=== PATIENT | male | born 1965 | race Caucasian/White ===

== ENCOUNTER → 2018-09-14 09:11 | Outpatient (CLI) | payer OTHER, SELFPAY ==
--- NOTE | 2018-09-14 | DI.RAD.S_ITS ---
PROCEDURE: XR ANKLE LT MIN 3V INDICATIONS: left ankle pain TECHNIQUE: 3 views of the ankle were acquired. COMPARISON: [facility], , ANKLE 3 VIEWS RIGHT, 05/23/2011, 16:24. FINDINGS: Bones: No fractures or dislocations. Ankle mortise is normally aligned. No suspicious bony lesions. Mid calcaneal bone island. Soft tissues: No tibiotalar joint effusion. Achilles tendon appears normal. Lateral malleolar soft tissue swelling. IMPRESSION: Lateral malleolar soft tissue swelling and no displaced fracture seen. If there is continued pain, followup exam or additional imaging such as MRI or CT could be performed for further assessment. Dictated by: Issa MATA Interpreted: Nicolas Frye MD on 09/14/2018 at 15:51 Approved by: Nicolas Frye M.D. on 09/15/2018 at 9:39
== END ==
PROVIDERS: Family Provider Family Medicine; PCP Family Medicine; Visit Provider Family Medicine
DX: M25.572 Pain in left ankle and joints of left foot (principal); M25.472 Effusion, left ankle
CPT/HCPCS: 73610

== ENCOUNTER → 2018-09-24 15:10 | Outpatient (CLI) | payer OTHER, SELFPAY ==
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
== END ==
PROVIDERS: Family Provider Family Medicine; PCP Family Medicine; Visit Provider Family Medicine
DX: M79.662 Pain in left lower leg (principal); M79.89 Other specified soft tissue disorders
CPT/HCPCS: 73610

== ENCOUNTER → 2019-04-19 17:49 | Outpatient (CLI) | payer OTHER, SELFPAY ==
--- NOTE | 2019-04-19 17:54 | DI.RAD.S_ITS ---
PROCEDURE: XR ANKLE RT MIN 3V INDICATIONS: ELEVATED PAIN PREVIOUS INJURY TECHNIQUE: 3 views of the ankle were acquired. COMPARISON: [facility], CR, XR ANKLE LT MIN 3V, 09/24/2018, 15:19. FINDINGS: Bones: No fractures or dislocations. Ankle mortise is normally aligned. No suspicious bony lesions. Unfused os trigonum. Mild degenerative spurring at the lateral and medial malleolus. Questionable subcortical cystic changes along the medial and lateral edge of the talar dome. Soft tissues: No tibiotalar joint effusion. Achilles tendon appears normal. IMPRESSION: Probable degenerative changes including questional subcortical cystic changes of the talar dome. Consider MR of the right ankle for continued symptoms. Dictated by: Amanda Schaefer M.D. on 04/19/2019 at 18:29 Approved by: Amanda Schaefer M.D. on 04/19/2019 at 18:31
== END ==
PROVIDERS: Family Provider Family Medicine; PCP Family Medicine; Visit Provider Family Medicine
DX: M25.571 Pain in right ankle and joints of right foot (principal)
CPT/HCPCS: 73610

== ENCOUNTER → 2019-05-28 14:07 | Outpatient (CLI) | payer OTHER, SELFPAY ==
--- NOTE | 2019-05-28 | DI.MRI.S_ITS ---
PROCEDURE: MR ANKLE RT WO CON INDICATIONS: RIGHT ANKLE PAIN TECHNIQUE: Noncontrast sagittal T1 spin echo and T2 fast spin echo with fat saturation, axial proton density fast spin echo and T2 fast spin echo with fat saturation, coronal T1 spin echo and T2 fast spin echo with fat saturation through the ankle/hindfoot. COMPARISON: [facility], CR, XR ANKLE RT MIN 3V, 04/19/2019, 17:55. FINDINGS: Image quality: Diagnostic. Bones and joints: No acute fracture or dislocation is identified involving the osseous structures of the midfoot or hindfoot. Moderate degenerative cystic changes are evident along the medial and lateral corners of the talar dome without a displaced osteochondral fragment evident. Defect of the overlying hyaline articular cartilage are suspected. There also are degenerative cystic changes present involving the articular surface of the lateral malleolus. Mild degenerative changes are noted involving the posterior subtalar joint. An os trigonum is present, demonstrating slight increased signal. Otherwise, the remainder of the midfoot and hindfoot joints are unremarkable. No significant joint effusions are present. Medial structures: The deltoid ligament is intact, but demonstrates slight increase signal. Thickening of the superomedial band of the spring ligament is present. The plantar components of the spring ligament are intact. The tibialis posterior, flexor digitorum longus, and flexor hallucis longus tendons appear to be within normal limits. There is slight prominence of the posterior tibial nerve through the region of interest normal. Lateral structures: The anterior and posterior distal tibiofibular ligaments are intact and otherwise unremarkable. There likely is a chronic full-thickness tear of the anterior talofibular ligament. The posterior talofibular ligament is intact, but heterogeneous. Thickening of the calcaneofibular ligament is present without a full-thickness tear evident. There is prominent flattening of the peroneus brevis tendon with a short segment longitudinal split tear extending from just above the level of the tip of the lateral malleolus to just slightly beyond the tip of the lateral malleolus. The peroneus longus tendon demonstrates minimal increased signal. There is slight increased signal identified within soft tissue surrounding these tendons. Trace amount of fluid may be contained within their corresponding tendon sheaths. Anterior structures: The tibialis anterior, extensor hallucis longus, and extensor digitorum longus tendons appear intact. The dorsal talonavicular ligament appears intact. Posterior and plantar structures: Achilles tendon is intact. Medial and lateral bands of the plantar fascia are of normal thickness. IMPRESSION: 1. 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 Degenerative cystic changes are present without an osteochondral fragment evident. 2. Short segment longitudinal split tear of the peroneus brevis tendon with corresponding mild tendinopathy. There is also mild peroneus longus tendinopathy. 3. Chronic appearing full-thickness anterior talofibular ligament tear. Scarring of the other lateral ankle ligaments likely is present. 4. Mild degenerative changes of the posterior subtalar joint. Os trigonum edema probably is degenerative. Clinical correlation to exclude os trigonum syndrome is recommended. 5. Probable scar of the spring ligament. A superimposed acute sprain is difficult to exclude. Dictated by: Wes Goldberg M.D. on 05/28/2019 at 16:56 Approved by: Wes Goldberg M.D. on 05/28/2019 at 17:03
== END ==
PROVIDERS: PCP Family Medicine; Visit Provider Family Medicine
DX: M25.571 Pain in right ankle and joints of right foot (principal); S93.491A Sprain of other ligament of right ankle, initial encounter
CPT/HCPCS: 73721

== ENCOUNTER → 2019-08-01 15:57 | Outpatient (CLI) | payer OTHER, SELFPAY ==
[2019-08-01 18:10] LABS: BUN Creatinine Ratio 23.8 (6-22); Blood Urea Nitrogen 19 mg/dL (9-20); Calcium 10.6 mg/dL (8.4-10.2); Carbon Dioxide 30 mmol/L (22-32); Chloride 100 mmol/L (98-107); Estimated Glomerular Filt Rate > 60.0 mL/min (>60); Glucose 82 mg/dL (70-100); HEMOLYSIS < 15 (0-50); Potassium 4.4 mmol/L (3.4-5.1); Sodium 140 mmol/L (137-145)
== END ==
PROVIDERS: Orthopaedic Surgery Foot and Ankle Surgery; PCP Family Medicine; Visit Provider Family Medicine
DX: M95.8 Other specified acquired deformities of musculoskeletal system (principal); S86.311A Strain of muscle(s) and tendon(s) of peroneal muscle group at lower leg level, right leg, initial encounter
CPT/HCPCS: 36415; 80048

== ENCOUNTER → 2020-03-17 07:05 | Outpatient (CLI) | payer OTHER, SELFPAY ==
[2020-03-17 07:32] LABS: Add Manual Diff / Slide Review NO; Basophils Absolute Auto 0 /uL (0-100); Basophils Percent Auto 0.3 % (0-2); Eosinophils Absolute Auto 200 /uL (0-450); Eosinophils Percent Auto 2.3 % (2-4); Hematocrit 47.7 % (41-53); Hemoglobin 16.3 g/dL (13.5-17.5); Lymphocytes Absolute Auto 1800 /uL (1100-4500); Lymphocytes Percent Auto 27.1 % (25-40); Mean Corpuscular HGB Conc 34.2 % (30-36); Mean Corpuscular Hemoglobin 29.5 PG (26-34); Mean Corpuscular Volume 86.3 fL (80-100); Monocytes Absolute Auto 500 /uL (0-900); Monocytes Percent Auto 8.2 % (3-14); Neutrophils Absolute Auto 4100 /uL (1500-7000); Neutrophils Percent Auto 62.1 % (50-75); Platelet Count 167 X10^3/uL (150-400); Red Blood Cell Count 5.53 X10^6/uL (4.5-5.9); Red Cell Distribution Width 14.2 % (11.6-14.8); White Blood Cell Count 6.6 X10^3/uL (4.5-11.0)
[2020-03-17 07:33] LABS: Alanine Aminotransferase 37 IU/L (<50); Albumin 4.5 g/dL (3.5-5.0); Albumin Globulin Ratio 1.7 (1.0-2.8); Alkaline Phosphatase 68 U/L (38-126); Aspartate Aminotransferase 26 IU/L (17-59); BUN Creatinine Ratio 19.5 (6-22); Bilirubin Total 1.1 mg/dL (0.2-1.3); Blood Urea Nitrogen 15 mg/dL (9-20); Calcium 9.6 mg/dL (8.4-10.2); Carbon Dioxide 30 mmol/L (22-32); Chloride 103 mmol/L (98-107); Estimated Glomerular Filt Rate > 60.0 mL/min (>60); Globulin 2.7 g/dL (1.7-4.1); Glucose 114 mg/dL (70-100); HEMOLYSIS < 15 (0-50); Potassium 4.8 mmol/L (3.4-5.1); Sodium 140 mmol/L (137-145); Total Protein 7.2 g/dL (6.3-8.2)
== END ==
PROVIDERS: PCP Family Medicine; Referring Provider Family Medicine; Visit Provider Family Medicine
DX: R10.31 Right lower quadrant pain (principal); R31.9 Hematuria, unspecified
CPT/HCPCS: 36415; 80053; 85025

== ENCOUNTER → 2020-03-17 07:22 | Outpatient (CLI) | payer OTHER, SELFPAY ==
--- NOTE | 2020-03-17 08:35 | DI.CT.S_ITS ---
PROCEDURE: CT ABDOMEN PELVIS W CON INDICATIONS: Right lower quadrant pain TECHNIQUE: After the administration of oral and intravenous contrast, 5 mm thick sections acquired from the diaphragms to the symphysis. 5 mm thick coronal and sagittal reformats were performed. For radiation dose reduction, the following was used: automated exposure control, adjustment of mA and/or kV according to patient size. COMPARISON: [facility], RG, CT KUB, 10/10/2006, 11:14. [facility], CT, ABDOMEN/PELVIS WITHOUT CONTRAS, 01/30/2015, 16:47. FINDINGS: Image quality: Excellent. ABDOMEN: Lung bases: Lung bases are clear. Heart size is normal. Solid organs: Liver is normal in size, and enhancement except a small focus at the superior posterior right hepatic segment seen on series 2 image 17, measuring only 9 mm in maximal dimension with peripheral slight hyperperfusion of the overlying liver parenchyma. In this same area on CT abdomen/pelvis performed without contrast 01/30/15 a subtle hypodensity can be seen corresponding to that structure, most likely a manifestation of stable small unilocular hemangioma. Gallbladder appears normal. Biliary system is non-dilated. Pancreas enhances normally. Spleen is normal in size and enhancement. No adrenal nodules. Kidneys are normal in size and enhancement, without hydronephrosis. Peritoneum and bowel: Stomach, small bowel, and colon loops are normal in caliber and wall thickness. No free fluid or air. Nodes and vessels: No retroperitoneal or mesenteric adenopathy. Aorta and inferior vena cava are normal in caliber. Miscellaneous: No ventral hernias. PELVIS: Genitourinary: Bladder wall thickness is normal. Miscellaneous: No inguinal hernias or adenopathy. A normal appendix is found at the right lower quadrant. No diverticulitis is present, no urinary tract stone is found. Bones: No suspicious bony lesions. No vertebral body compression fractures. IMPRESSION: Source of right lower quadrant pain is not identified. Normal appendix seen, no diverticulitis or urinary tract stones or inflammation identified. Incidental note is made of a small perfusion anomaly at the superior right posterior hepatic segment in an area corresponding to a subtle hypodensity seen in the same site in January of [address] scanning. The appearance is nonspecific but statistically most likely a manifestation of a small unilocular hemangioma. If clinically desired that area could be insonated for sonographic characterization but by positioning near the undersurface of the diaphragm to may not be identifiable. Dictated by: Shayne Mario M.D. on 03/17/2020 at 9:12 Approved by: Shayne Mario M.D. on 03/17/2020 at 9:21
== END ==
PROVIDERS: PCP Family Medicine; Referring Provider Family Medicine; Visit Provider Family Medicine
DX: R10.31 Right lower quadrant pain (principal); R31.9 Hematuria, unspecified
CPT/HCPCS: 36415; 74177; 80053; 85025; Q9967

== ENCOUNTER 2021-05-09 20:52 | Emergency (ER) | payer OTHER, SELFPAY ==
[2021-05-09 21:07] VITALS: BP 146/81; PULSE 65; RESP 18; TEMP 36.5; O2SAT 96; BMI 31.8
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
[2021-05-09] MEDS: BACITRACIN OINT 0.9 GM PCKT 3 APPLIC TOP (21:31)
[2021-05-09] MEDS: OXYCODONE/ACETAMINOPHEN 5/325 TABLET 1 TAB PO (23:16)
[2021-05-10] MEDS: OXYCODONE/APAP 5/325 PREPACK 1 BOTTLE MISC (01:42)
== END 2021-05-10 01:45 | disposition home or self-care (01) ==
PROVIDERS: Emergency Provider Emergency Medicine; PCP Family Medicine
DX: T23.202A Burn of second degree of left hand, unspecified site, initial encounter (principal); W39.XXXA Discharge of firework, initial encounter
CPT/HCPCS: 99283; 99284

== ENCOUNTER → 2021-07-29 15:10 | Outpatient (CLI) | payer OTHER, SELFPAY ==
--- NOTE | 2021-07-29 15:13 | DI.RAD.S_ITS ---
PROCEDURE: XR WRIST RT MIN 3V INDICATIONS: RT WRIST PAIN TECHNIQUE: 3 views of the wrist were acquired. COMPARISON: None. FINDINGS: Bones: No fractures or dislocations. No suspicious bony lesions. Moderate radiocarpal joint space narrowing with periarticular osteophyte formation. Healed fracture deformity involving the distal radial metaphysis. Healed fracture deformity of the 3rd metacarpus with fixation plate and screws present. Large bone cyst involving the distal ulna. Scaphoid view: Not requested. Soft tissues: No suspicious soft tissue calcifications. IMPRESSION: 1. Moderate radiocarpal joint degeneration. 2. Large bone cyst involving the distal ulna. 3. Healed fracture deformity of the distal radius as well as the 3rd metacarpal bone where fixation hardware is present and in expected positions. Dictated by: Issa MATA Interpreted: Hiram Aguirre MD on 07/29/2021 at 15:32 Transcribed by: DUNIA on 07/29/2021 at 15:34 Approved by: Hiram Aguirre M.D. on 07/29/2021 at 17:28
== END ==
PROVIDERS: PCP Family Medicine; Referring Provider Family Medicine; Visit Provider Family Medicine
DX: M25.531 Pain in right wrist (principal); M85.641 Other cyst of bone, right hand
CPT/HCPCS: 73110

== ENCOUNTER → 2021-08-12 13:03 | Outpatient (ROUT) | payer OTHER, SELFPAY ==
[2021-08-12 15:14] LABS: COVID19 -Nasal RAPID Negative (Negative)
== END ==
PROVIDERS: PCP Family Medicine; Visit Provider Family Medicine
DX: Z20.822 Contact with and (suspected) exposure to COVID-19 (principal)
CPT/HCPCS: 87635

== ENCOUNTER → 2021-08-30 11:45 | Outpatient (ROUT) | payer OTHER, SELFPAY ==
[2021-08-30 12:58] LABS: COVID19 -Nasal RAPID POSITIVE (Negative)
== END ==
PROVIDERS: PCP Family Medicine; Visit Provider Family Medicine
DX: U07.1 COVID-19 (principal)
CPT/HCPCS: 87635

== ENCOUNTER → 2022-01-17 10:22 | Outpatient (CLI) | payer OTHER, SELFPAY ==
--- NOTE | 2022-01-17 | DI.RAD.S_ITS ---
PROCEDURE: XR CERVICAL SPINE 4V OR 5V INDICATIONS: NECK PAIN TECHNIQUE: 5 views of the cervical spine were acquired. COMPARISON: [facility], , CERVICAL SPINE 4 OR 5 VIEWS, 07/07/2016, 16:40. FINDINGS: Bones: No fractures or dislocations to the T1 level. No suspicious bony lesions. Prior ACDF C5-C6 and C6-C7 with hardware and bone grafts in expected unchanged positions. Periprosthetic lucency again seen involving the surgical fixation screws unchanged from prior examination. Moderate disc height loss at the C3-C4 and C4-C5 levels. Moderate multilevel mid and lower cervical spine facet joint arthropathy and uncovertebral hypertrophy There is normal range of motion between flexion and extension, with mild dynamic instability at the C3-C4 and C4-C5 levels where there is grade 1 retrolisthesis on the extension view. Soft tissues: Prevertebral soft tissues are normal in thickness. IMPRESSION: 1. Stable postsurgical sequelae and bony alignment. Of note, periprosthetic lucencies again seen involving the surgical fixation screws unchanged from prior examination. 2. Multilevel spondylosis similar to prior examination. 3. Mild dynamic instability noted on the flexion extension views at the C3-C4 and C4-C5 levels. Dictated by: Issa Michel [facility] Interpreted: Graeme Ballesteros MD on 01/17/2022 at 10:55 Approved by: Graeme Ballesteros M.D. on 01/17/2022 at 16:49
== END ==
PROVIDERS: PCP Family Medicine; Referring Provider Family Medicine; Visit Provider Family Medicine
DX: M47.812 Spondylosis without myelopathy or radiculopathy, cervical region (principal); M54.2 Cervicalgia; Z98.1 Arthrodesis status
CPT/HCPCS: 72050

== ENCOUNTER 2023-04-08 22:15 | Emergency (ER) | payer OTHER, SELFPAY ==
[2023-04-08 22:26] VITALS: BP 131/98; PULSE 89; RESP 16; TEMP 36.7; O2SAT 96; BMI 32.3
--- NOTE | 2023-04-08 22:32 | DI.RAD.S_ITS ---
PROCEDURE: XR ANKLE LT MIN 3V INDICATIONS: Ankle pain TECHNIQUE: 3 views of the ankle were acquired. COMPARISON: [facility], CR, XR ANKLE RT MIN 3V, 04/19/2019, 17:55[facility], CR, XR ANKLE LT MIN 3V, 09/24/2018, 15:19. FINDINGS: Bones: No dislocations. Ankle mortise is normally aligned. No suspicious bony lesions. There is a diagonal nondisplaced fracture involving the distal diaphysis of the left fibula, with no additional trauma found. Soft tissues: No tibiotalar joint effusion. Achilles tendon appears normal. IMPRESSION: Acute appearing diagonal nondisplaced distal fibular fracture involving the diaphysis. Dictated by: Shayne Mario M.D. on 04/08/2023 at 22:45 Approved by: Shayne Mario M.D. on 04/08/2023 at 22:46
--- NOTE | 2023-04-08 22:32 | ED_ITS ---
HPI - Extremity Injury (Lower) General Chief Complaint: Extremity Injury, Lower Stated Complaint: Did something to leg Time Seen by Provider: 04/08/23 22:32 Source: patient Mode of arrival: Wheelchair History of Present Illness HPI Narrative: 57-year-old male daily smoker with noncontributory chronic medical history presents with his in the chief complaint of pain in his left lower extremity laterally just above the ankle. He was playing horseshoes and stepped awkwardly and he felt a pop. It is reported that other bystanders also heard the pop. He now has pain with ambulation and reports an inability to weightbear secondary to this pain. He denies any knee or hip pain. He is otherwise well and free of complaint Related Data Previous Rx's Medication Instructions Recorded hydrocodone 5 mg-acetaminophen 325 12 tab PO Q6H PRN #10 tabs 10/31/17 mg tablet ([place]) oxycodone-acetaminophen 5 mg-325 1 tab PO Q8H PRN pain #20 tabs 07/05/21 mg tablet (Percocet) Allergies Allergy/AdvReac Type Severity Reaction Status Date / Time NSAIDS (Non-Steroidal Allergy Severe ANAPHYLACTI Verified 04/08/23 22:26 Anti-Inflamma CS [NSAIDS (NON-STEROIDAL ANTI-INFLAMMA] Review of Systems Review of Systems Narrative: GENERAL: Denies chills, fatigue, malaise, fever, sweats. HEENT: Denies sinus pain, ear pain, sore throat, difficulty swallowing, dizziness. RESPIRATORY: Denies dyspnea, cough, wheezing, hemoptysis, sputum. CARDIOVASCULAR: Denies chest pain, palpitations, orthopnea, edema, GASTROINTESTINAL: Denies nausea, vomiting, abdominal pain, diarrhea, constipation, melena. : Denies dysuria, frequency, incontinence, hematuria, urinary retention. MUSCULOSKELETAL: See HPI SKIN: Denies rash, skin lesions, or other NEUROLOGIC: Denies weakness, headache, numbness, change in speech, confusion, seizures, incoordination. PSYCHIATRIC: No concerning psychosocial issues. 12 point review of systems is negative except for those stated above Patient History Social History Smoking Status: Current every day smoker Smoking Status: Current every day smoker alcohol intake frequency: 0-2 drinks per day Alcohol type: beer Substance Use Type: does not use Exam Narrative Exam Narrative: GENERAL: [57] year old patient appears stated age. Well-developed patient, in mild distress. HEAD: Atraumatic. Normocephalic. EYES: Pupils equal round and reactive. Extraocular motions intact. No scleral icterus. No injection or drainage. ENT: Nose without bleeding, purulent drainage. Throat without erythema, tonsillar hypertrophy or exudate. Airway patent. NECK: Trachea midline. Non tender CARDIOVASCULAR: Regular rate and rhythm without murmurs, gallops, or rubs. RESPIRATORY: Clear to auscultation. Breath sounds equal bilaterally. No wheezes, rales, or rhonchi. GASTROINTESTINAL: Abdomen soft, non-tender, nondistended. EXTREMITIES: No pain in left hip, knee, ankle or foot. There is pain and swelling a few cm proximal to lateral malleolus. No pain in distribution of Achilles tendon, patient laid on abdomen and calf squeeze results in plantar flexion. BACK: Nontender without deformity or crepitance. No flank tenderness. NEURO: AOx3. SKIN: No rash or erythema of visible areas Initial Vital Signs Initial Vital Signs: Vital Signs Temperature 98.0 F 04/08/23 22:26 Pulse Rate 89 04/08/23 22:26 Respiratory Rate 16 04/08/23 22:26 Blood Pressure 131/98 H 04/08/23 22:26 Pulse Oximetry 96 04/08/23 22:26 Oxygen Delivery Method Room Air 04/08/23 22:26 Procedures Orthopedic Splinting/Casting Injury #1: Side: left Lower Extremity Injury Location: lower leg Lower Extremity Immobilizer: boot orthosis Other Orthopedic Equipment: crutches Post splinting neuro exam: intact Post splinting vascular exam: intact Course Orders Ordered: Discontinued Medications Acetaminophen (Acetaminophen 325 Mg Tablet) 975 mg PO NOW ONE Stop: 04/09/23 00:29 Last Admin: 04/09/23 00:42 Dose: Not Given Documented By: SB Vital Signs Vital signs: Vital Signs - 8 hr 04/08/23 22:26 Temperature 98.0 F Pulse Rate 89 Respiratory Rate 16 Blood Pressure 131/98 H Pulse Oximetry 96 Oxygen Delivery Method Room Air MDM - Extremity Injury (Lower) MDM Narrative Medical decision making narrative: [57] year old patient presents with left lower extremity pain Multiple etiologies for patient's symptoms considered including, but not limited to: [Fracture versus dislocation] Prior Charts reviewed in our EMR Primary Historian: patient Imaging reviewed: Oblique fibular fracture Patient's symptoms improved over duration of stay with above-stated therapies. Findings and discharge diagnosis discussed with patient/family followed by verbalization of understanding Return precautions discussed with patient/family whom verbalize understanding of diagnosis and plan Discharge Plan Departure Patient Disposition: Home Clinical Impression: Closed left fibular fracture Instructions: Fibula Shaft Fracture Activity Restrictions/Additional Instructions: *You have been diagnosed with [left fibula fracture] *What to do: *Please continue to take your regular medications as directed. [ ] New medication prescriptions sent to your pharmacy: [ ] [ ] New medication written as a paper prescription [x] Tylenol and occasional Motrin for pain *Please follow up with [ Toney] of [facility] in 2-3 days, call for an appointment. Let them know you were seen in the Emergency Department and that we ask that you be seen in follow up. We will electronically transmit a record of today's note if your PCP is in our system Non-weight bearing until cleared by ortho *Return to Emergency Department if you should have any new, worsening or concerning symptoms, such as [worsening pain, significant swelling, cold extremities, numbness, tingling, weakness or other bothersome symptoms Splint Care: Keep splint clean and dry. Elevated affected body part to decrease swelling. OK to use ice pack on the affected body part. Use for 15-20 minutes each time, for 5-6x per day. If you develop worsening pain, numbness, tingling, discoloration of the affected body part, loosen the splint by loosening the RAYSHAWN wrap, and either see your doctor for an urgent re-assessment, or return to the Emergency Department. Return to the Emergency Department for any new or worsening symptoms. Prescriptions: No Action hydrocodone-acetaminophen [[place]] 5 MG/325 MG tablet 12 tab PO Q6H PRNQty: 10 0RF oxycodone-acetaminophen [Percocet] 5-325 mg tablet 1 tab PO Q8H PRN (Reason: pain) Qty: 20 0RF Referrals: Kayla Ceballos MD [Primary Care Provider] - Stephy Ziegler MD [Physician] - Stand Alone Forms: Patient Portal/API, Work Release Note
== END 2023-04-09 00:44 | disposition home or self-care (01) ==
PROVIDERS: Emergency Provider Emergency Medicine; PCP Family Medicine
DX: S82.402A Unspecified fracture of shaft of left fibula, initial encounter for closed fracture (principal); X50.1XXA Overexertion from prolonged static or awkward postures, initial encounter
CPT/HCPCS: 73610; 99282; 99283

== ENCOUNTER → 2024-03-15 14:35 | Outpatient (CLI) | payer OTHER, SELFPAY ==
--- NOTE | 2024-03-15 14:39 | DI.CT.S_ITS ---
PROCEDURE: CT LE RT WO CON INDICATIONS: Post-traumatic osteoarthritis, right ankle and foot TECHNIQUE: Noncontrast 1-mm axial sections acquired from the distal femoral shaft to the bottom of foot, with coronal and sagittal reformats.. COMPARISON: [facility], CR, XR ANKLE 3 VIEWS WEIGHT BEARING LEFT, 04/19/2023, 8:24. [facility], CR, XR ANKLE 3 VIEWS WEIGHT BEARING LEFT, 05/17/2023, 8:18. [facility], CR, XR ANKLE 3 VIEWS WEIGHT BEARING RIGHT, 01/02/2024, 15:26. FINDINGS: Image quality: Excellent. Bones: Alignment of left lower extremity is anatomic. No acute fracture or dislocation. Mild tricompartmental osteoarthritis in right knee is seen with joint space narrowing and subchondral sclerosis. Moderate to severe tibiotalar joint osteoarthritic changes are noted with significant joint space narrowing, extensive subchondral sclerosis and subcortical cystic changes. There is flattening of talar dome with large osteochondral injury involving medial aspect of talar dome and a unstable loose fragment measures 1 x 0.7 x 0.7 cm in size. Arlm-ti-apqmauvt osteoarthritic changes are noted in talonavicular joint and subtalar joint. No suspicious bony lesions. Soft tissues: There is small to moderate amount of tibiotalar joint effusion. No gross calcified intra-articular loose bodies. No discrete soft tissue mass or drainable fluid collection. No gross full-thickness tendon rupture. IMPRESSION: 1. Moderate to severe tibiotalar joint osteoarthritis with suggestion of large osteochondral injury involving medial weight-bearing portion of talar dome and a 1 x 0.7 x 0.7 cm likely unstable fragment. 2. Iwvw-in-qmjitfbp osteoarthritic changes throughout rest of the right lower extremity. No acute fracture or dislocation. No suspicious bony lesions. 3. Small to moderate tibiotalar joint effusion, no calcified intra-articular loose bodies. No discrete soft tissue mass or drainable fluid collection. No full-thickness tendon rupture. Dictated by: Maulik Lane M.D. on 03/15/2024 at 16:43 Approved by: Maulik Lane M.D. on 03/15/2024 at 16:53
== END ==
LOC: CT 14:38
PROVIDERS: PCP Family Medicine; Referring Provider Orthopaedic Surgery Foot and Ankle Surgery; Visit Provider Orthopaedic Surgery Foot and Ankle Surgery
DX: M19.171 Post-traumatic osteoarthritis, right ankle and foot (principal); M25.471 Effusion, right ankle
CPT/HCPCS: 73700

== ENCOUNTER → 2024-04-15 12:36 | Outpatient (ROUT) | payer OTHER, SELFPAY ==
[2024-04-15 12:54] LABS: Add Manual Diff / Slide Review NO; Basophils Absolute Auto 0 /uL (0-100); Basophils Percent Auto 0.3 % (0-2); Eosinophils Absolute Auto 200 /uL (0-450); Eosinophils Percent Auto 1.7 % (2-4); Hematocrit 46.9 % (41-53); Lymphocytes Absolute Auto 2200 /uL (1100-4500); Lymphocytes Percent Auto 24.5 % (25-40); Mean Corpuscular HGB Conc 34.2 % (30-36); Mean Corpuscular Hemoglobin 29.8 PG (26-34); Mean Corpuscular Volume 87.1 fL (80-100); Monocytes Absolute Auto 800 /uL (0-900); Monocytes Percent Auto 8.5 % (3-14); Neutrophils Absolute Auto 5900 /uL (1500-7000); Platelet Count 188 X10^3/uL (150-400); Red Blood Cell Count 5.38 X10^6/uL (4.5-5.9); Red Cell Distribution Width 14.6 % (11.6-14.8)
[2024-04-15 13:48] LABS: Alanine Aminotransferase 42 IU/L (<50); Albumin 4.6 g/dL (3.5-5.0); Albumin Globulin Ratio 2.2 (1.0-2.8); Alkaline Phosphatase 80 U/L (38-126); Aspartate Aminotransferase 32 IU/L (17-59); BUN Creatinine Ratio 17.3 (6-22); Bilirubin Total 0.7 mg/dL (0.2-1.3); Blood Urea Nitrogen 13 mg/dL (9-20); Calcium 9.2 mg/dL (8.4-10.2); Carbon Dioxide 29 mmol/L (22-32); Chloride 104 mmol/L (98-107); Cholesterol 209 mg/dL (140-199); Estimated Glomerular Filt Rate > 60 mL/min (>60); Globulin 2.1 g/dL (1.7-4.1); Glucose 66 mg/dL (70-100); HDL Cholesterol 50 mg/dL (40-60); HEMOLYSIS 21 (0-50); Hemoglobin A1C% w Est Avg Glu 5.6 % (4.0-6.0); Potassium 3.6 mmol/L (3.4-5.1); Sodium 141 mmol/L (137-145); Total Protein 6.7 g/dL (6.3-8.2)
== END ==
PROVIDERS: PCP Family Medicine; Visit Provider Family Medicine
DX: Z01.818 Encounter for other preprocedural examination (principal); Z01.812 Encounter for preprocedural laboratory examination; R73.9 Hyperglycemia, unspecified
CPT/HCPCS: 36415; 80053; 82306; 82465; 83036; 83718; 85025

== ENCOUNTER → 2024-05-15 06:25 | Day surgery (SDC) | payer OTHER, SELFPAY ==
[2024-05-06 08:37] VITALS: BMI 33.6
[2024-05-15] MEDS: ACETAMINOPHEN 325 MG TABLET 975 MG PO (07:04)
[2024-05-15] MEDS: LACTATED RINGERS 1,000 ML 42 ML IV (07:09)
[2024-05-15 07:14] VITALS: BP 160/97; PULSE 56; RESP 18; TEMP 36.7; O2SAT 96; BMI 36.3
--- NOTE | 2024-05-15 07:34 | PM.PREOP ---
Pre-operative Note Interval Note History & Physical reviewed/Exam performed by Physician: Yes Changes to H&P: No
[2024-05-15 07:43] LABS: COVID19 -Nasal RAPID POSITIVE (Negative)
--- NOTE | 2024-05-15 07:55 | SUR.PREOP ---
CASE CANCELLED DUE TO PT TESTING POSITIVE FOR COVID
== END | disposition home or self-care (01) ==
LOC: OR 06:28 → AC 07:50 → OR 11:48
PROVIDERS: PCP Family Medicine; Referring Provider Orthopaedic Surgery Foot and Ankle Surgery; Visit Provider Orthopaedic Surgery Foot and Ankle Surgery
DX: M19.071 Primary osteoarthritis, right ankle and foot (principal); Z53.8 Procedure and treatment not carried out for other reasons; U07.1 COVID-19
CPT/HCPCS: 87635

== ENCOUNTER 2024-06-26 06:45 | Day surgery (SDC) | payer OTHER, SELFPAY ==
[2024-06-25 12:51] VITALS: BMI 33.9
[2024-06-26] VITALS (11 sets, daily range): BP systolic 102–172; BP diastolic 63–91; PULSE 61–88; RESP 12–17; TEMP 36.3–36.6; O2SAT 92–95; BMI 36.4
--- NOTE | 2024-06-26 | DI.RAD.S_ITS ---
PROCEDURE: XR ANKLE RT 2V INDICATIONS: TOTAL ANKLE ARTHRO TECHNIQUE: Intraoperative fluoroscopic spot films COMPARISON: [facility], CR, XR ANKLE LT MIN 3V, 04/08/2023, 22:29. FINDINGS: Ankle joint prosthetic placement and associated surgical instrumentation in for preop position. IMPRESSION: Fluoroscopic guidance Approved by: Jimmy Richardson M.D. on 06/26/2024 at 15:10
[2024-06-26] MEDS: LACTATED RINGERS 1,000 ML 42 ML IV ×2 (07:55→10:59)
[2024-06-26] MEDS: ACETAMINOPHEN 325 MG TABLET 975 MG PO (07:55)
--- NOTE | 2024-06-26 08:28 | P.HP_ITS ---
History of Present Illness History of Present Illness Date Patient Seen: 06/26/24 Time Patient Seen: 08:28 Chief complaint: Right total ankle *OPB* Narrative: Naif is a 59-year-old male with right ankle pain and a history of right ankle arthritis. He had a right ankle arthroscopic aided Mindy OCL fixation and subchondroplasty and peroneal tendon repair in 2019 that helped him for several years. His injury is a result of a industrial injury on 02/03/2011 was claim number is [id number]. He currently works as a compo conveyor operator. He does not have diabetes. He stopped smoking for surgery. He does not take any blood thinners. He is allergic to blue dye. He has no personal or family history of blood clots or thromboembolism no history of stomach ulcers. He was previously scheduled for a total ankle replacement but found to have COVID on the date of surgery it is now been over 6 weeks since that and he is recovered. He had an asymptomatic case. He has been once again medically optimized for surgery and presents for his total ankle arthroplasty today. Review of systems is negative for any fatigue fever sweats chest pain. [facility] Medical History History of COVID-19 (05/15/24) Allergic rhinitis HTN (hypertension) Diverticulosis DJD (degenerative joint disease) Hx of fracture of rib (2012) Surgical History Hx of hand surgery History of ankle surgery (2018) S/P cervical spinal fusion (2009) Social History household members: significant other Smoking Status: Former smoker alcohol intake: current Meds Home Medications and Allergies Home Medications Medication Instructions Recorded Confirmed Type oxycodone-acetaminophen 5 mg-325 1 tab PO Q8H PRN pain #20 tabs 05/10/21 06/26/24 Rx mg tablet (Percocet) hydrochlorothiazide 25 mg tablet 25 mg PO DAILY 05/06/24 06/26/24 History losartan 100 mg tablet 100 mg PO DAILY 05/06/24 06/26/24 History metoprolol succinate 150 mg PO DAILY 05/15/24 06/26/24 History hydrocodone 5 mg-acetaminophen 325 12 tab PO Q6H PRN Pain (Scale 06/26/24 06/26/24 History mg tablet Score 4-6) Allergies Allergy/AdvReac Type Severity Reaction Status Date / Time blue dye Allergy Severe Anaphylaxis Verified 05/15/24 07:43 felodipine Allergy Hives Verified 06/25/24 12:53 lisinopril Allergy Angioedema, Verified 06/25/24 12:53 hives Blue gatorade Allergy Facial Uncoded 05/06/24 11:52 swelling Review of Systems Review of Systems ROS: Yes All systems reviewed with the patient and are negative except as otherwise documented Exam Vital Signs (past 8 hours): - 06/26/24 07:45 Temperature 97.4 F L Pulse Rate 61 Respiratory Rate 17 Blood Pressure 172/91 H Pulse Oximetry 95 Oxygen Delivery Method Room Air Oxygen Delivery Method Room Air Narrative Exam Narrative: Vital signs within normal limits with the exception of some elevated blood pressure this morning. He did appropriately hold his losartan preop. Heart regular rate and rhythm. Lungs clear to auscultation bilaterally. Right lower extremity demonstrates grossly normal alignment range of motion is 5-30 degrees and 10+-30 with knee flexion. He has good strength stability and no swelling atrophy or effusion no wounds. He has a palpable dorsalis pedis pulse. He does have a positive Silfverskiold. Objective Imaging CT scan right ankle March 15, 2024: Radiologist's impression: Independently interpreted the CT scan of the right ankle demonstrates posttraumatic ankle arthritis with a large osteochondral lesion of the talar dome with an unstable fragment. An extensive tibiotalar arthritis. 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 The scan reviewed appropriate bone stock for total ankle arthroplasty. He is failed conservative treatments has been indicated for total ankle arthroplasty. We discussed the total ankle arthroplasty as well as need for additional procedures including gastroc or Achilles lengthening ligamentous balancing or prophylactic fixation for fractures or treatment of intraoperative fractures at the time of surgery. We discussed postoperative plan of nonweightbearing 2-6 weeks depending on adjacent procedures. We discussed the importance of wound healing. He has a prescription for a knee scooter, crutches and a walking boot. The indications are right ankle arthritis and impending ankle replacement surgery. I anticipate a gastroc recession for him. He may need additional ligamentous balancing a prophylactic malleolar fixation as indicated. He had a history of constipation so I recommended starting use the MiraLax several days before surgery. He will go into a splint at the time of surgery and then a boot once his incision has healed appropriately. He has been optimized for surgery keny his labs, EKG and appropriate medical optimization. He has confirmed a candidate for surgery. Definitive surgical decision-making. Postoperative DVT prophylaxis will be enteric-coated aspirin 325 mg daily for 6 weeks this is the same as taking for baby aspirin once a day for 6 weeks. He has postoperative medications including Toradol, Zofran, oxycodone and MiraLax. The risks and benefits and alternatives procedure were discussed with the patient in detail including but not limited to infection, nonunion malunion, loosening, persistent pain wound healing problems, fractures, amputation DVT pulmonary embolism stroke paralysis and symptomatic hardware. He is elected to proceed with the surgery. Consent was signed. Time-Based Coding :: [TOTAL MINUTES] spent with patient and on the chart (including review of chart, obtaining history, exam, reviewing outside data, placing orders, documenting exam and treatment plan, and counseling patient) on [DATE].
--- NOTE | 2024-06-26 08:47 | SUR.PREOP ---
Block start time [0835] . Monitoring initiated and maintained throughout procedure. Oxygen and medications given per anesthesiologist instructions. Patient remained stable throughout procedure, no adverse reactions noted. Block end time [0843].
[2024-06-26] MEDS: CEFAZOLIN 2 GM/100 ML PREMIX 100 ML IV (08:50)
--- NOTE | 2024-06-26 08:54 | SUR.PREOP ---
Block start time [] . Monitoring initiated and maintained throughout procedure. Oxygen and medications given per anesthesiologist instructions. Patient remained stable throughout procedure, no adverse reactions noted. Block end time [].
--- NOTE | 2024-06-26 09:14 | SUR.OPER ---
Supine on padded OR bed, head on pillow, arms secured on padded arm boards at <90 degrees abduction, legs uncrossed, safety belt at thigh, tape over blanket over lower legs. bump under right hip.
[2024-06-26] MEDS: BUPIVACAINE 0.25% (PF) 60 ML, EPINEPHrine 0.3 MG INJ (09:20)
[2024-06-26] MEDS: hydrOXYzine 50 MG/ML INJ 25 MG IM (12:07)
[2024-06-26] MEDS: OXYCODONE IR 5 MG TABLET PO (12:07)
--- NOTE | 2024-06-26 12:25 | P.OP_ITS ---
Operative Date/Time/Diagnoses Date of procedure: 06/26/24 Time of procedure: 08:50 Pre-op diagnosis: Right ankle arthritis, posttraumatic Tightness gastroc muscle, right Post-op diagnosis: same Procedure & Clinicians Procedure: Total ankle arthroplasty, right CPT code 28719 Right gastroc recession CPT code 93043 modifier 59 separate site separate incision Same procedure as scheduled: Yes Indications: The patient is a 59-year-old male who had a injury to his right ankle in 2010 at work. He now has posttraumatic ankle arthritis and has been indicated for total ankle arthroplasty. He is successfully quit smoking. He has a gastroc contracture. The risks and benefits of the procedure have been discussed with the patient and given the opportunity to ask questions. The risks of surgery include but are not limited to infection, malunion, nonunion, persistence of pain, damage to nerves and blood vessels, posttraumatic arthritis, DVT, PE, coardiopulmonary complications and . The patient expressed a thorough understanding of the risks and benefits of surgery and has elected to proceed. Consent was signed During the operation, the services of a physician ophthalmology surgical technician were medically indicated and necessary to provide the exposure of the operative site for the surgical procedure and to maintain the limb in a proper position to carry out the operation safely and efficiently. Without a qualified diet assistant being present this would extended the operative procedure and made the procedure technically more difficult to perform. Surgeon: Mera Bowers Rail Signal Designer: Ricardo Loyd Anesthesia Type: General, Peripheral nerve block and Local Operative Notes Findings: Gastroc contracture with positive Silfverskiold improved after gastroc recession End-stage ankle arthritis Closure Type: primary Specimen(s): none sent Prosthetic devices, grafts, tissues, transplants, or devices: Currie 28 apex total ankle Right tibia size 4 long arc Right talus flat cut size 3 6 mm poly Estimated Blood Loss (mL): 10 Blood products transfused: none Tourniquet time (min): 106 Procedure in detail: Total ankle paragon 28 apex Patient was seen in the preoperative area the site of surgery was marked informed consent confirmed. This was the right lower extremity. The patient was found to have a gastroc contracture and was indicated for gastroc recession. A preoperative block was placed by the anesthesia team for postoperative pain control the patient was brought to the operating room and positioned supine on the operative table. All bony prominences were well padded. A well-padded thigh tourniquet was applied. And the right lower extremity was prepped and draped in the standard sterile fashion. A formal time-out procedure was performed confirming the patient's side and site of surgery administration of appropriate preoperative antibiotic. All were in agreement. Attention was turned to the right leg Esmarch was used for exsanguination and the tourniquet elevated to 250 mm of mercury. Gastroc contracture was addressed 1st using a separate incision proximally 14 cm above the Achilles insertion on the heel a posteromedial incision was made carefully slightly more medial than usual to avoid a tattoo. This was a 3 cm incision taken through the skin subcutaneous tissue. Care was taken to avoid the posterior neurovascular bundle. The gastroc fascia was then exposed and while the leg was in ankle dorsiflexion putting tension on the gastroc the gastroc fascia was divided medial to lateral preserving the soleus fascia underneath this completed and excellent 2 cm recession which improved preoperative dorsiflexion from 5? to 15? with the knee extended. Once this was completed it was irrigated and closed with 4-0 Monocryl and 3-0 nylon suture. Next attention was returned to the ankle. A standard anterior approach of the ankle was drawn out of the leg approximately 10 cm in length and 1 cm lateral to the tibial crest extending longitudinally bisecting the tibiotalar joint and talonavicular joint. This was taken down through skin and subcutaneous tissue with care to taken to isolate and protect the superficial peroneal nerve branch. Next the extensor retinaculum was opened and tagged with a 0 Vicryl for later repair. The EHL tendon sheath was opened in the EHL and neurovascular bundle were retracted laterally and the tibialis anterior was kept in its sheath and retracted medially. This brought us down directly on the anterior tibia. Dissection was taken all the way down to the talonavicular joint to expose the talus. Capsule was divided and retracted. Subperiosteal dissection was completed along the tibia and talus. This point the 3D guide for the tibial cut was applied to the bone and fit in the planned position this was pinned in place with a medial pin and then the guides were utilized and the alignment was checked in AP and lateral fluoroscopy. Once this was adequate the 2nd pin was placed. Then the cut guides were applied again checking sizes and checking medial and lateral orientation as well as slope. The marked drilled guide for the tibia were then used followed by the flat cut guide for the talus and the gutter resection was completed. Once this was completed the talus and tibia least sections were removed and inspected. Some clean-up cuts along the posteromedial talus were made where there had been previous surgery and the bone was extremely sclerotic. Once the areas were appropriate the trials were applied and alignment was checked this provided appropriate alignment and range of motion with adequate bony bridges. Next the tibia preparation tray was placed and the peg holes impacted. And in the similar fashion using the tibial guide the tibial guide holes were drilled. A separate wire was used to drill the sclerotic area of the posteromedial talus resection to aid with fixation. The areas were irrigated and then the implants were selected. Small amount of demineralized bone matrix was placed on the tibial implant this was impacted in the standard fashion with excellent alignment and fixation. Small batch of cement was mixed and applied with the implants. The talus was then applied and the 6 mm poly. Alignment was checked in AP mortise lateral planes and was excellent. Ankle was stable no other ligamentous balancing was necessary. This point tourniquet was released and hemostasis was achieved. Capsule was closed with 0 Vicryl. Extensor retinaculum was closed with 0 Vicryl and 2-0 PDS. Subcutaneous with 2-0 PDS 4-0 Monocryl skin with 3-0 nylon suture. The patient was placed into a sterile dressing with Xeroform gauze Webril bulky Brush cotton and a posterior and stirrup splint. Patient was woken from anesthesia and taken to recovery unit in good condition there were no immediate complications from the procedure and all counts were correct. Complications: none Post-operative Condition: stable Disposition: PACU Plan for aftercare: Touchdown lower extremity for balance or axial loading only. Otherwise nonweightbearing. Follow up in 3 weeks for incision check. Aspirin for DVT prophylaxis.
--- NOTE | 2024-06-26 14:25 | SUR.PHASEII ---
1405 PT DC to home after having coffee/juice/crackers and candy. Stated dizziness resolved and no longer dizzy when sitting up. Able to transfer to [facility] and to car.
== END 2024-06-26 14:10 | disposition home or self-care (01) ==
LOC: OR 06:46 → AC 06:46
PROVIDERS: PCP Family Medicine; Referring Provider Orthopaedic Surgery Foot and Ankle Surgery; Visit Provider Orthopaedic Surgery Foot and Ankle Surgery
PROC: (CPT 27702; principal; 2024-06-26 08:45)
DX: M19.171 Post-traumatic osteoarthritis, right ankle and foot (principal); M62.89 Other specified disorders of muscle; G89.18 Other acute postprocedural pain
CPT/HCPCS: 27702; 27687; 64450; 73600; 76000; C1776; J0171; J0690; J1100; J2250; J2405; J2704; J3010; J3410

== ENCOUNTER → 2024-10-25 15:30 | Outpatient (CLI) | payer OTHER, SELFPAY ==
--- NOTE | 2024-10-25 15:32 | DI.CT.S_ITS ---
PROCEDURE: CT LE RT WO CON INDICATIONS: Stress fracture of right ankle TECHNIQUE: Noncontrast 1-1.5 mm axial sections acquired from above the tibiotalar joint to the bottom of the calcaneus, with coronal and sagittal reformats. COMPARISON: [facility], CR, XR ANKLE 3 VIEWS WEIGHT BEARING RIGHT, 10/08/2024, 8:19. [facility], CT, CT LE RT WO CON, 03/15/2024, 14:44. FINDINGS: Image quality: Excellent. Bones: Diffuse osseous demineralization. Status post total ankle arthroplasty with a minimally displaced , obliquely oriented periprosthetic fracture at the medial malleolus (/[id number]; ). While there is mild osseous bridging at the posterior cortex of the fracture planes, there is a 0.4 cm fracture gap between the cortices anteriorly (/194). No other acute fracture or dislocation. No periprosthetic loosening. Joints: Osseous remodeling at the lateral talar process and distal fibula, likely secondary to prior ligamentous injury. Muscles: Mild diffuse muscle atrophy. Tendons: Visualized flexor and extensor tendon contours are within normal limits. Achilles tendon contours within normal limits. Vessels: No aneurysmal dilatation of the visualized vasculature. Other soft tissues: Diffuse subcutaneous edema around the visualized lower calf and ankle. IMPRESSION: Acute-subacute, minimally displaced medial malleolar periprosthetic fracture with mild osseous bridging at the posterior cortex and persistent fracture gap at the anterior cortex. Dictated by: Andrés Garcia M.D. on 10/25/2024 at 22:15 Approved by: Andrés Garcia M.D. on 10/25/2024 at 22:23
== END ==
LOC: CT 15:31
PROVIDERS: PCP Family Medicine; Referring Provider Orthopaedic Surgery Foot and Ankle Surgery; Visit Provider Orthopaedic Surgery Foot and Ankle Surgery
DX: M84.371D Stress fracture, right ankle, subsequent encounter for fracture with routine healing (principal); X58.XXXD Exposure to other specified factors, subsequent encounter
CPT/HCPCS: 73700

== ENCOUNTER 2024-11-04 11:08 | Day surgery (SDC) | payer OTHER, SELFPAY ==
[2024-10-31 07:14] VITALS: BMI 36.4
[2024-11-04] VITALS (8 sets, daily range): BP systolic 122–172; BP diastolic 77–99; PULSE 62–78; RESP 14–30; TEMP 35.9–36.6; O2SAT 92–97; BMI 38.4
--- NOTE | 2024-11-04 | DI.RAD.S_ITS ---
PROCEDURE: XR ANKLE RT MIN 3V INDICATIONS: RT ANKLE ORIF TECHNIQUE: Intraoperative images COMPARISON: [facility], CR, XR ANKLE RT 2V, 06/26/2024, 10:09. [facility], CR, XR ANKLE LT MIN 3V, 04/08/2023, 22:29. [facility], CR, XR ANKLE RT MIN 3V, 04/19/2019, 17:55. [facility], CR, XR ANKLE LT MIN 3V, 09/24/2018, 15:19. FINDINGS: Intraoperative images show distal tibial plate and screw fixation of a periprosthetic fracture with a pre-existing total ankle arthroplasty. The total fluoroscopy time was 1 minutes and 20 seconds. IMPRESSION: Internal fixation of the right ankle. Please see the operative report for further details. Dictated by: Andrés Garcia M.D. on 11/05/2024 at 15:02 Approved by: Andrés Garcia M.D. on 11/05/2024 at 15:05
--- NOTE | 2024-11-04 13:03 | PM.PREOP ---
Pre-operative Note Interval Note History & Physical reviewed/Exam performed by Physician: Yes Changes to H&P: No
--- NOTE | 2024-11-04 13:20 | P.OP_ITS ---
Operative Date/Time/Diagnoses Date of procedure: 11/04/24 Time of procedure: 13:30 Pre-op diagnosis: Fracture medial malleolus right, right ankle pain medial Post-op diagnosis: same Procedure & Clinicians Procedure: Open reduction internal fixation right medial malleolus fracture CPT code 04923, right Same procedure as scheduled: Yes Indications: Patient was a 59-year-old male that presents with a right ankle periprosthetic stress fracture of the medial malleolus. He underwent a total ankle arthroplasty in June of 2024 postoperatively he experienced a twisting event and increased ankle pain was found to have a nondisplaced stress fracture. Initial efforts at conservative treatment were completed but pain persisted. CT scan demonstrated nondisplaced medial malleolus fracture with bridging posteriorly but persistent gap and fracture at the anterior 70% of the fracture the patient was indicated for open reduction internal fixation of the medial malleolus fracture to prevent fracture propagation and implant instability and treat persistent fracture pain. He was also noted to have pain posterior medially as well and during the ORIF of the medial malleolus it was elected to explore the posteromedial neurovascular structures and tendinous structures. The risks and benefits of the procedure have been discussed with the patient and given the opportunity to ask questions. The risks of surgery include but are not limited to infection, malunion, nonunion, persistence of pain, damage to nerves and blood vessels, posttraumatic arthritis, DVT, PE, coardiopulmonary complications and . The patient expressed a thorough understanding of the risks and benefits of surgery and has elected to proceed. Consent was signed. Surgeon: Mera Bowers Click Yes if Unassisted: Yes Anesthesia Type: General, Peripheral nerve block and Local Operative Notes Findings: Nondisplaced medial malleolus fracture fixed with paragon medial malleolus locking plate and 2.7 locking and nonlocking screws. Excision of small medial malleolar ossicle Exploration posteromedial tendinous structures intact posterior tibialis tendon, FDL and neurovascular bundle with very thickened flexor retinaculum with a was released. Closure Type: primary Specimen(s): none sent Prosthetic devices, grafts, tissues, transplants, or devices: [place] 28 Small medial malleolus plate right with 2.7 nonlocking and locking screws Estimated Blood Loss (mL): 20 Blood products transfused: none Tourniquet time (min): 54 Procedure in detail: Patient was seen in the preoperative area the site of surgery was marked informed consent confirmed this was the right ankle. Preoperative block was placed by the anesthesia team for postoperative pain control. The patient was taken to the operating room and positioned supine on operative table. General anesthetic was administered. A well-padded thigh tourniquet was applied to the right leg. SCD was placed on the contralateral leg. The right leg was prepped and draped in the standard sterile fashion. A formal time-out procedure was performed confirming the patient's side and site of surgery administration of the appropriate preoperative antibiotic all were in agreement. Attention turned to the right lower extremity the Esmarch was used for exsanguination the tourniquet raised on the thigh to 250 mmHg. Attention turned to the right ankle a medial incision was made along the medial malleolus curving gently distally dissection was carried down subcutaneously. The saphenous neurovascular bundle was protected and retracted anteriorly. The periosteum was elevated at the level of the medial malleolus the stress fracture level was identified anteriorly. And of periosteum was lifted to make space for the plate. Distally at the distal tip of the medial malleolus there was a small ossicle this was excised using the rongeur and pituitary. Posteriorly the soft tissues were dissected in the flexor retinaculum was identified. This was heavily scarred. This was carefully incised allowing visualization of the intact posterior tibialis tendon FDL tendon and posterior tibial neurovascular bundle. Once this was completely released attention was returned to the medial malleolus fracture. The small sized paragon 28 medial malleolus plate was fit to the fracture and positioned in place with the olive wires this was checked on AP and lateral imaging and adjusted. Next at the apex of the vertical fracture a nonlocking 2.7 screw was placed bicortically bringing the plate down to bone. A 2nd nonlocking screw was placed in the next shaft screw followed by locking screws distally at the medial malleolus and a final locking screw with the proximal shaft. Alignment was excellent onto intraoperative fluoroscopy. The ankle was taken through range of motion was stable. Gutters were noted to be clear. The tourniquet was released hemostasis was achieved. The split in the deltoid and periosteum was closed with 2-0 Vicryl suture. Subcutaneous with 2-0 Vicryl and 4-0 Monocryl and 3-0 nylon suture in the skin. Additional 0.25% Marcaine with epinephrine was injected for local anesthesia. Sterile dressing with Xeroform g auze Webril and an Elmo wrap was applied followed by a ortho glass splint. Patient was awoken from anesthesia and taken to the recovery unit in good condition there were no immediate complications from the procedure. All counts were correct. Complications: none Post-operative Condition: stable Disposition: PACU Plan for aftercare: Partial weight-bearing in the boot with the assistive devices. If painful than nonweightbearing or toe-touch until incision healing. May come out of the boot and brace for ankle dorsiflexion plantar flexion range of motion. Keep incision clean dry and intact until follow up in orthopedic clinic. Aspirin for DVT pro phylaxis.
[2024-11-04] MEDS: CEFAZOLIN 2 GM/100 ML PREMIX 100 ML IV (13:48)
[2024-11-04] MEDS: BUPIVACAINE 0.25% W/ EPI 30 ML VIAL 60 ML INJ (14:05)
--- NOTE | 2024-11-04 14:08 | SUR.OPER ---
Supine on padded OR bed, head on pillow, arms secured on padded arm boards at <90 degrees abduction, legs uncrossed, leg leg taped over blanket and , right leg sterile draped and in control of the Surgeon, right leg on folded blanket bmp, safety belt at lower torso,
[2024-11-04] MEDS: LACTATED RINGERS 1,000 ML 42 ML IV (14:30)
[2024-11-04] MEDS: ACETAMINOPHEN IV 1,000 MG/100 ML VIAL 400 MG IV (15:00)
[2024-11-04] MEDS: OXYCODONE IR 5 MG TABLET PO (15:37)
[2024-11-04] MEDS: ONDANSETRON 4 MG/2 ML INJ IV (15:37)
== END 2024-11-04 16:15 | disposition home or self-care (01) ==
PROVIDERS: PCP Family Medicine; Referring Provider Orthopaedic Surgery Foot and Ankle Surgery; Visit Provider Orthopaedic Surgery Foot and Ankle Surgery
PROC: 0SSF04Z Reposition Right Ankle Joint with Internal Fixation Device, Open Approach (ICD-10-PCS; CPT 27766; principal; 2024-11-04 13:30)
DX: M84.371A Stress fracture, right ankle, initial encounter for fracture (principal); M62.89 Other specified disorders of muscle; Z96.661 Presence of right artificial ankle joint
CPT/HCPCS: 27766; 73610; 76000; J0134; J0690; J1100; J1885; J2250; J2405; J2704; J3010

== ENCOUNTER → 2025-04-14 14:35 | Outpatient (ROUT) | payer OTHER, SELFPAY ==
[2025-04-14 14:48] LABS: Add Manual Diff / Slide Review NO; Basophils Absolute Auto 0 /uL (0-100); Basophils Percent Auto 0.3 % (0-2); Eosinophils Absolute Auto 200 /uL (0-450); Eosinophils Percent Auto 2.2 % (2-4); Hematocrit 46.2 % (41-53); Hemoglobin 15.9 g/dL (13.5-17.5); Lymphocytes Absolute Auto 2000 /uL (1100-4500); Lymphocytes Percent Auto 24.9 % (25-40); Mean Corpuscular HGB Conc 34.4 % (30-36); Mean Corpuscular Hemoglobin 29.8 PG (26-34); Mean Corpuscular Volume 86.7 fL (80-100); Monocytes Absolute Auto 600 /uL (0-900); Monocytes Percent Auto 7.6 % (3-14); Neutrophils Absolute Auto 5300 /uL (1500-7000); Platelet Count 178 X10^3/uL (150-400); Red Blood Cell Count 5.33 X10^6/uL (4.5-5.9); White Blood Cell Count 8.2 X10^3/uL (4.5-11.0)
[2025-04-14 14:55] LABS: Alanine Aminotransferase 38 IU/L (<50); Albumin 4.7 g/dL (3.5-5.0); Albumin Globulin Ratio 2.2 (1.0-2.8); Alkaline Phosphatase 90 U/L (38-126); Aspartate Aminotransferase 33 IU/L (17-59); BUN Creatinine Ratio 17.8 (6-22); Bilirubin Total 1.2 mg/dL (0.2-1.3); Blood Urea Nitrogen 13 mg/dL (9-20); Calcium 9.6 mg/dL (8.4-10.2); Carbon Dioxide 26 mmol/L (22-32); Chloride 103 mmol/L (98-107); Cholesterol 206 mg/dL (140-199); Estimated Glomerular Filt Rate > 60 mL/min (>60); Globulin 2.1 g/dL (1.7-4.1); Glucose 84 mg/dL (70-99); HDL Cholesterol 44 mg/dL (40-60); HEMOLYSIS < 15 (0-50); LDL Cholesterol Calculated 133 mg/dL (<100); Potassium 3.5 mmol/L (3.4-5.1); Sodium 142 mmol/L (137-145); Total Protein 6.8 g/dL (6.3-8.2); Triglycerides 144 mg/dL (35-150); Uric Acid 7.5 mg/dL (3.5-8.5)
[2025-04-14 15:01] LABS: Hemoglobin A1C% w Est Avg Glu 5.4 % (4.0-6.0)
[2025-04-14 15:21] LABS: Thyroid Stimulating Hormone 1.72 uIU/mL (0.47-4.68)
[2025-04-14 15:25] LABS: Testosterone 180 ng/dL (71.8-623)
[2025-04-14 15:31] LABS: Ferritin 189 ng/mL (18-464)
[2025-04-16 04:08] LABS: CRP, High Sensitivity 13.49 mg/L (0.00-3.00)
== END ==
PROVIDERS: PCP Family Medicine; Visit Provider Family Medicine
DX: I10 Essential (primary) hypertension (principal); R53.83 Other fatigue; R07.89 Other chest pain; R68.82 Decreased libido; T14.8XXA Other injury of unspecified body region, initial encounter
CPT/HCPCS: 80053; 80061; 82728; 83036; 84403; 84443; 84550; 85025; 86140

== ENCOUNTER → 2025-04-16 10:45 | Outpatient (ROUT) | payer OTHER, SELFPAY ==
[2025-04-16 11:39] LABS: Testosterone 172 ng/dL (71.8-623)
[2025-04-16 11:53] LABS: Vitamin D 25 Hydroxy (D3) 56.9 ng/mL (30.0-100.0)
== END ==
LOC: LAB 10:45
PROVIDERS: PCP Family Medicine; Visit Provider Family Medicine
DX: E34.9 Endocrine disorder, unspecified (principal)
CPT/HCPCS: 82306; 84403

== ENCOUNTER → 2025-08-13 13:37 | Outpatient (ROUT) | payer OTHER, SELFPAY | PROVIDERS: PCP Family Medicine; Visit Provider Family Medicine | DX: M25.571 Pain in right ankle and joints of right foot (principal); Z87.891 Personal history of nicotine dependence | CPT/HCPCS: 80321; 86140 ==